=== PATIENT | female | born 1945 | race Caucasian/White ===

== ENCOUNTER 2020-02-25 11:10 | Inpatient (IN) | payer MEDICARE, BC ==
[~2020-02-25] VITALS: Ht 172.7 cm; Wt 106.5 kg
--- NOTE | 2020-02-25 11:31 | NUR ---
Assumed care of patient. Recently admitted to [facility] for sepsis (from RLE cellulitis) January 05-. Patient seen at [facility] today for left knee pain. Joint was aspirated and she was told she needed to come to the ED for surgery for a septic knee. C/O left knee pain and swelling. NAD. Will continue to monitor.
[2020-02-25 12:01] LABS: BASOPHILS # (AUTO) 0.03 x10^3/uL (0-0.1); BASOPHILS % (AUTO) 0 % (0-1); EOSINOPHILS # (AUTO) 0.17 x10^3/uL (0-0.4); EOSINOPHILS % (AUTO) 2 % (1-7); LYMPHOCYTES # (AUTO) 1.11 x10^3/uL (1-3.4); LYMPHOCYTES % (AUTO) 12 % (22-44); MD NO; MEAN CORPUSCULAR HEMOGLOBIN 31.5 pg (27.0-34.8); MEAN CORPUSCULAR HGB CONC 32.4 g/dL (32.4-35.8); MEAN PLATELET VOLUME 8.9 fL (7.4-10.4); MONOCYTES # (AUTO) 1.22 x10^3/uL (0.2-0.8); MONOCYTES % (AUTO) 14 % (2-9); NEUTROPHILS # (AUTO) 6.53 x10^3/uL (1.8-6.8); NEUTROPHILS % (AUTO) 72 % (42-75); PLATELET COUNT 212 x10^3/uL (130-400); RED BLOOD COUNT 4.29 x10^6/uL (3.82-5.3); RED CELL DISTRIBUTION WIDTH 14.6 % (9.6-15.2)
[2020-02-25 12:10] LABS: ALANINE AMINOTRANSFERASE 29 U/L (12-78); ANION GAP 7 mmol/L (5-15); CALCIUM 9.1 mg/dL (8.5-10.1); CHLORIDE 106 mmol/L (98-107)
[2020-02-25 12:12] LABS: ALKALINE PHOSPHATASE 92 U/L (45-117); BILIRUBIN,TOTAL 0.4 mg/dL (0.2-1.0); TOTAL PROTEIN 7.8 g/dL (6.4-8.2)
[2020-02-25] MEDS ORDERED: CEFTRIAXONE PMX 1GM/50ML 50 ML ONE (12:43)
--- NOTE | 2020-02-25 12:55 | NUR ---
PER YOLANDA ELIAS IN [facility] OKAY TO GIVE.
--- NOTE | 2020-02-25 12:56 | NUR ---
MED MUNA FROM PHARMACY.
[2020-02-25] MEDS ORDERED: SODIUM CHLORIDE 0.9% 1,000ML IVBOLUS ONE (13:00)
--- NOTE | 2020-02-25 13:37 | NUR ---
REPORT GIVEN TO [facility]. PT IS READY FOR TRANSPORT AT THIS TIME W/ IVF INUSING APPROPRIATELY.
--- NOTE | 2020-02-25 13:40 | NUR ---
1L NS BOLUS STOPPED AFTER 500ML DUE TO PTS HTN. Addendum: 02/25/20 at 1340 by [email or web address] 1L NS BOLUS STOPPED AFTER 500ML DUE TO PTS HTN. SULY WHITE
[2020-02-25] MEDS ORDERED: POTASSIUM CHLORIDE 40 MEQ in SODIUM CHLORIDE 0.9% 500 ML IV ONE (14:00)
[2020-02-25] MEDS ORDERED: CEFTRIAXONE 1,000 MG in SODIUM CHLORIDE 0.9% 50 ML IVPB ONE (14:00)
[2020-02-25] MEDS ORDERED: methylPREDNISolone *ACETATE* 40 MG/ML ONE (14:29)
[2020-02-25] MEDS ORDERED: BUPIVACAINE/PF 0.5% ONE (14:29)
[2020-02-25] MEDS ORDERED: EPINEPHRINE 1 MG/ML, 1ML ONE (14:29)
[2020-02-25] MEDS ORDERED: methylPREDNISolone*ACETATE* 80 MG/ML ONE (14:29)
[2020-02-25] MEDS ORDERED: ROPIvacaine/PF 0.5%, 30 ML ONE (14:29)
[2020-02-25] MEDS ORDERED: LIDOCAINE/MPF 2%-EPI 1:200K, 20 ML ONE (14:29)
[2020-02-25] MEDS ORDERED: CHLORHEXIDINE 15 ML UDC MM STA (14:31)
[2020-02-25] MEDS ORDERED: FENTANYL PF 250 MCG/5ML ONE (14:40)
[2020-02-25 14:52] VITALS: BP 154/79
[2020-02-25] MEDS ORDERED: OXYcodone 5 MG/5 ML ORAL.SOL UDC PO PRN (15:00)
[2020-02-25] MEDS ORDERED: ACETAMINOPHEN 325 MG TABLET PO PRN (15:00)
[2020-02-25] MEDS ORDERED: ONDANSETRON 2MG/ML, 2ML IVPush PRN ×2 (15:00→17:30)
[2020-02-25] MEDS ORDERED: HYDROmorphone 1 MG/ML, 1ML INJ IVPush PRN (15:00)
[2020-02-25] MEDS ORDERED: PROMETHAZINE 25 MG SUPP PR PRN (15:00)
[2020-02-25] MEDS ORDERED: PROMETHAZINE 25 MG/ML, 1ML IVPush PRN (15:00)
[2020-02-25] MEDS ORDERED: LABETALOL 5MG/ML, 20ML IV PRN (15:00)
[2020-02-25] MEDS ORDERED: hydrALAzine 20 MG/ML, 1ML IV PRN (15:00)
[2020-02-25] MEDS ORDERED: LACTATED RINGERS 1,000 ML IV SCH (15:00)
[2020-02-25] MEDS ORDERED: GLYCOPYRROLATE 0.2MG/1ML, 5ML ONE (15:22)
[2020-02-25] MEDS ORDERED: ONDANSETRON 2MG/ML, 2ML ONE (15:22)
[2020-02-25] MEDS ORDERED: NEOSTIGMINE 1 MG/ML, 10ML ONE (15:22)
[2020-02-25] MEDS ORDERED: DEXAMETHASONE 4 MG/ML, 1ML ONE (15:22)
[2020-02-25] MEDS ORDERED: PROPOFOL 10 MG/ML, 20ML ONE (15:22)
[2020-02-25] MEDS ORDERED: ROCURONIUM 10MG/ML,5ML ONE (15:22)
[2020-02-25] MEDS ORDERED: SUCCINYLCHOLINE 20 MG/ML, 10ML ONE (15:22)
[2020-02-25] MEDS ORDERED: CEFAZOLIN 1,000 MG ONE (15:22)
[2020-02-25] MEDS ORDERED: FENTANYL PF 100 MCG/2ML ONE (15:56)
[2020-02-25] MEDS ORDERED: ACETAMINOPHEN 325 MG TABLET ONE (15:57)
[2020-02-25] MEDS ORDERED: OXYcodone 5 MG/5 ML ORAL.SOL UDC ONE (15:57)
[2020-02-25] MEDS ORDERED: ACETAMINOPHEN 650 MG/20.3 ML UDC ONE (15:58)
[2020-02-25] MEDS: FENTANYL PF 100 MCG/2ML IV PRN ×2 (16:00→16:20)
[2020-02-25] MEDS ORDERED: LABETALOL 5MG/ML, 20ML ONE (16:23)
[2020-02-25] MEDS ORDERED: GABA300C PO (16:35)
[2020-02-25] MEDS ORDERED: ASPI-496 PO (16:35)
[2020-02-25] MEDS ORDERED: MULT-758 PO (16:35)
[2020-02-25] MEDS ORDERED: ASPI-650 PO (16:35)
[2020-02-25] MEDS ORDERED: SULF500T36 PO (16:35)
[2020-02-25] MEDS ORDERED: NORT10CA PO (16:35)
[2020-02-25] MEDS ORDERED: CYAN25009 PO (16:35)
[2020-02-25] MEDS ORDERED: OMEP40CA42 PO (16:35)
[2020-02-25] MEDS ORDERED: FURO40TA6 PO (16:35)
[2020-02-25] MEDS ORDERED: IBUP-1902 PO (16:35)
[2020-02-25] MEDS ORDERED: VITA100C8 PO (16:35)
[2020-02-25] MEDS ORDERED: ADAL40PE7 SQ (16:35)
[2020-02-25] MEDS ORDERED: METO50TA82 PO (16:35)
[2020-02-25] MEDS ORDERED: FOLI-17 PO (16:35)
[2020-02-25] MEDS ORDERED: EZET10TA70 PO (16:35)
[2020-02-25] MEDS ORDERED: CALC1CAP8 PO (16:35)
[2020-02-25] MEDS ORDERED: ATOR-2 PO (16:35)
[2020-02-25] MEDS ORDERED: NITR0.4T41 SL (16:35)
[2020-02-25] MEDS ORDERED: ASCO100018 PO (16:35)
[2020-02-25] MEDS ORDERED: HYDR-3245 PO (16:35)
[2020-02-25] MEDS ORDERED: CHOL10003 PO (16:35)
[2020-02-25] MEDS ORDERED: ADALIMUMAB 40 MG HOMEINJ SCH (17:00)
[2020-02-25] MEDS ORDERED: NITROGLYCERIN SINGLE TAB 0.4 MG SL SCH (17:00)
[2020-02-25] MEDS ORDERED: BISACODYL 10 MG SUPP PR PRN (17:30)
[2020-02-25] MEDS ORDERED: hydrALAzine 20 MG/ML, 1ML IVPush PRN (17:30)
[2020-02-25] MEDS ORDERED: POLYETHYLENE GLYCOL 17 GM PACKET PO PRN (17:30)
[2020-02-25] MEDS: CEFTRIAXONE PMX 1GM/50ML 50 ML IV SCH (18:07)
[2020-02-25] MEDS: SULFASALAZINE 500 MG TABLET PO SCH ×2 (18:07→20:05)
[2020-02-25] MEDS: HEPARIN 5,000 UNITS/ML, 1ML SQ SCH (18:07)
[2020-02-25 18:58] VITALS: BP 114/72
[2020-02-25 18:58] LABS: BASOPHILS # (AUTO) 0.01 x10^3/uL (0-0.1); BASOPHILS % (AUTO) 0 % (0-1); EOSINOPHILS # (AUTO) 0.04 x10^3/uL (0-0.4); EOSINOPHILS % (AUTO) 0 % (1-7); LYMPHOCYTES # (AUTO) 0.55 x10^3/uL (1-3.4); LYMPHOCYTES % (AUTO) 6 % (22-44); MD NO; MEAN CORPUSCULAR HEMOGLOBIN 31.8 pg (27.0-34.8); MEAN CORPUSCULAR HGB CONC 32.7 g/dL (32.4-35.8); MEAN PLATELET VOLUME 9.3 fL (7.4-10.4); MONOCYTES # (AUTO) 0.66 x10^3/uL (0.2-0.8); MONOCYTES % (AUTO) 7 % (2-9); NEUTROPHILS # (AUTO) 7.81 x10^3/uL (1.8-6.8); NEUTROPHILS % (AUTO) 86 % (42-75); PLATELET COUNT 175 x10^3/uL (130-400); RED BLOOD COUNT 4.31 x10^6/uL (3.82-5.3); RED CELL DISTRIBUTION WIDTH 14.5 % (9.6-15.2)
[2020-02-25 19:10] LABS: ANION GAP 3 mmol/L (5-15); CALCIUM 9.1 mg/dL (8.5-10.1); CHLORIDE 107 mmol/L (98-107); CREATININE 0.53 mg/dL (0.55-1.02)
[2020-02-25 19:19] LABS: FREE T4 (FREE THYROXINE) 1.28 ng/dL (0.76-1.46)
[2020-02-25 19:48] LABS: HCT (SEDRATE) 41.7 % (34.6-47.8)
[2020-02-25] MEDS: NORTRIPTYLINE 10 MG CAPSULE PO SCH (20:05)
[2020-02-25] MEDS: ATORVASTATIN 80 MG TABLET PO SCH (20:05)
[2020-02-25] MEDS: GABAPENTIN 300 MG CAPSULE PO SCH (20:05)
[2020-02-25] MEDS: HYDROcodone/APAP 10/325 MG TABLET PO PRN (20:23)
[2020-02-25] MEDS ORDERED: MELATONIN 5 MG TABLET PO PRN (21:00)
[2020-02-26 01:59] VITALS: BP 140/91
[2020-02-26] MEDS: HYDROcodone/APAP 10/325 MG TABLET PO PRN ×4 (02:51→22:05)
[2020-02-26] MEDS: HEPARIN 5,000 UNITS/ML, 1ML SQ SCH ×3 (05:50→20:25)
[2020-02-26] MEDS: SULFASALAZINE 500 MG TABLET PO SCH ×5 (05:50→20:24)
[2020-02-26] MEDS: OMEPRAZOLE 20 MG CAPSULE.DR PO SCH (05:50)
[2020-02-26] MEDS: CEFTRIAXONE PMX 1GM/50ML 50 ML IV SCH ×2 (05:51→17:29)
[2020-02-26 06:40] VITALS: BP 163/96
[2020-02-26] MEDS: METOPROLOL TARTRATE 50 MG TAB PO SCH (08:13)
[2020-02-26] MEDS: GABAPENTIN 300 MG CAPSULE PO SCH ×2 (08:13→20:24)
[2020-02-26] MEDS: ASCORBIC ACID 500 MG TABLET PO SCH (08:13)
[2020-02-26] MEDS: ASPIRIN 81 MG TABLET EC PO SCH (08:13)
[2020-02-26] MEDS: FUROSEMIDE 40 MG TABLET PO SCH (08:13)
[2020-02-26] MEDS: CYANOCOBALAMIN 1,000 MCG TABLET PO SCH (08:13)
[2020-02-26] MEDS: FOLIC ACID 1 MG TABLET PO SCH (08:14)
[2020-02-26] MEDS: CALCIUM/VITAMIN D3 250-125 TABLET PO SCH (08:14)
[2020-02-26] MEDS: MULTIVITAMINS WITH IRON TABLET PO SCH (08:14)
[2020-02-26] MEDS: EZETIMIBE 10 MG TABLET PO SCH (08:14)
[2020-02-26] MEDS: CHOLECALCIFEROL 1,000 UNIT TABLET PO SCH (08:14)
[2020-02-26] MEDS: VITAMIN E 400 UNITS CAPSULE PO SCH (08:22)
[2020-02-26] MEDS ORDERED: VANCOMYCIN 2,500 MG in SODIUM CHLORIDE 0.9% 500 ML IV ONE (08:30)
[2020-02-26] MEDS ORDERED: PHARMACOKINETIC CONSULTATION MC ONE (08:30)
[2020-02-26] MEDS ORDERED: VANCOMYCIN PER PHARMACY MC PRN (08:30)
[2020-02-26] MEDS ORDERED: PHARMACOKINETIC MONITORING MC PRN (08:30)
[2020-02-26] MEDS: ACETAMINOPHEN 325 MG TABLET PO PRN ×2 (14:18→20:24)
[2020-02-26 15:30] VITALS: BP 167/93
[2020-02-26 18:53] VITALS: BP 134/81
[2020-02-26] MEDS: ATORVASTATIN 80 MG TABLET PO SCH (20:24)
[2020-02-26] MEDS: NORTRIPTYLINE 10 MG CAPSULE PO SCH (20:25)
[2020-02-27 01:03] VITALS: BP 183/81
[2020-02-27] MEDS: HYDROcodone/APAP 10/325 MG TABLET PO PRN ×5 (04:12→21:49)
[2020-02-27 05:29] LABS: ANION GAP 6 mmol/L (5-15); BASOPHILS # (AUTO) 0.02 x10^3/uL (0-0.1); BASOPHILS % (AUTO) 0 % (0-1); CALCIUM 9.1 mg/dL (8.5-10.1); CHLORIDE 105 mmol/L (98-107); EOSINOPHILS # (AUTO) 0.07 x10^3/uL (0-0.4); EOSINOPHILS % (AUTO) 1 % (1-7); LYMPHOCYTES # (AUTO) 1.19 x10^3/uL (1-3.4); LYMPHOCYTES % (AUTO) 17 % (22-44); MD NO; MEAN CORPUSCULAR HEMOGLOBIN 31.4 pg (27.0-34.8); MEAN CORPUSCULAR HGB CONC 32.2 g/dL (32.4-35.8); MEAN PLATELET VOLUME 9.1 fL (7.4-10.4); MONOCYTES # (AUTO) 1.06 x10^3/uL (0.2-0.8); MONOCYTES % (AUTO) 15 % (2-9); NEUTROPHILS # (AUTO) 4.61 x10^3/uL (1.8-6.8); NEUTROPHILS % (AUTO) 66 % (42-75); PLATELET COUNT 186 x10^3/uL (130-400); RED BLOOD COUNT 4.12 x10^6/uL (3.82-5.3); RED CELL DISTRIBUTION WIDTH 14.5 % (9.6-15.2)
[2020-02-27 05:30] LABS: CREATININE 0.47 mg/dL (0.55-1.02)
[2020-02-27] MEDS: CEFTRIAXONE PMX 1GM/50ML 50 ML IV SCH (06:18)
[2020-02-27] MEDS: SULFASALAZINE 500 MG TABLET PO SCH ×5 (06:18→22:03)
[2020-02-27] MEDS: HEPARIN 5,000 UNITS/ML, 1ML SQ SCH ×3 (06:19→21:48)
[2020-02-27] MEDS: OMEPRAZOLE 20 MG CAPSULE.DR PO SCH (06:19)
[2020-02-27 07:26] VITALS: BP 174/104
[2020-02-27] MEDS: CHOLECALCIFEROL 1,000 UNIT TABLET PO SCH (07:32)
[2020-02-27] MEDS: FOLIC ACID 1 MG TABLET PO SCH (07:32)
[2020-02-27] MEDS: GABAPENTIN 300 MG CAPSULE PO SCH ×2 (07:32→22:03)
[2020-02-27] MEDS: VITAMIN E 400 UNITS CAPSULE PO SCH (07:32)
[2020-02-27] MEDS: MULTIVITAMINS WITH IRON TABLET PO SCH (07:32)
[2020-02-27] MEDS: ASCORBIC ACID 500 MG TABLET PO SCH (07:32)
[2020-02-27] MEDS: EZETIMIBE 10 MG TABLET PO SCH (07:32)
[2020-02-27] MEDS: CYANOCOBALAMIN 1,000 MCG TABLET PO SCH (07:33)
[2020-02-27] MEDS: ASPIRIN 81 MG TABLET EC PO SCH (07:33)
[2020-02-27] MEDS: FUROSEMIDE 40 MG TABLET PO SCH (07:33)
[2020-02-27] MEDS: METOPROLOL TARTRATE 50 MG TAB PO SCH (07:36)
[2020-02-27] MEDS: CALCIUM/VITAMIN D3 250-125 TABLET PO SCH (07:45)
[2020-02-27] MEDS: ACETAMINOPHEN 325 MG TABLET PO PRN (07:45)
[2020-02-27] MEDS: VANCOMYCIN 2,100 MG in SODIUM CHLORIDE 0.9% 500 ML IV SCH (09:27)
[2020-02-27] MEDS: POTASSIUM CHLORIDE 20 MEQ TAB.ER.PRT PO SCH ×3 (09:28→21:49)
[2020-02-27 12:38] VITALS: BP 170/89
[2020-02-27 13:51] VITALS: BP 140/84
[2020-02-27] MEDS: INSULIN LISPRO 100 UNITS/ML, PEN SQ-INSULIN SCH ×2 (16:00→21:00)
[2020-02-27 18:57] VITALS: BP 159/86
[2020-02-27] MEDS: ATORVASTATIN 80 MG TABLET PO SCH (21:48)
[2020-02-27] MEDS: NORTRIPTYLINE 10 MG CAPSULE PO SCH (21:49)
[2020-02-28 01:14] VITALS: BP 150/78
[2020-02-28] MEDS: HYDROcodone/APAP 10/325 MG TABLET PO PRN ×4 (04:01→18:05)
[2020-02-28 05:43] LABS: ANION GAP 6 mmol/L (5-15); CALCIUM 9.5 mg/dL (8.5-10.1); CHLORIDE 105 mmol/L (98-107)
[2020-02-28 05:44] LABS: CREATININE 0.42 mg/dL (0.55-1.02)
[2020-02-28] MEDS: SULFASALAZINE 500 MG TABLET PO SCH ×5 (06:01→20:24)
[2020-02-28] MEDS: OMEPRAZOLE 20 MG CAPSULE.DR PO SCH (06:02)
[2020-02-28] MEDS: HEPARIN 5,000 UNITS/ML, 1ML SQ SCH ×3 (06:02→21:30)
[2020-02-28] MEDS: INSULIN LISPRO 100 UNITS/ML, PEN SQ-INSULIN SCH ×4 (07:00→20:25)
[2020-02-28 07:12] VITALS: BP 143/88
[2020-02-28] MEDS: ASCORBIC ACID 500 MG TABLET PO SCH (08:15)
[2020-02-28] MEDS: MULTIVITAMINS WITH IRON TABLET PO SCH (08:15)
[2020-02-28] MEDS: CHOLECALCIFEROL 1,000 UNIT TABLET PO SCH (08:15)
[2020-02-28] MEDS: POTASSIUM CHLORIDE 20 MEQ TAB.ER.PRT PO SCH ×3 (08:15→20:24)
[2020-02-28] MEDS: ASPIRIN 81 MG TABLET EC PO SCH (08:16)
[2020-02-28] MEDS: CALCIUM/VITAMIN D3 250-125 TABLET PO SCH (08:16)
[2020-02-28] MEDS: VITAMIN E 400 UNITS CAPSULE PO SCH (08:16)
[2020-02-28] MEDS: EZETIMIBE 10 MG TABLET PO SCH (08:16)
[2020-02-28] MEDS: GABAPENTIN 300 MG CAPSULE PO SCH ×2 (08:17→20:24)
[2020-02-28] MEDS: FOLIC ACID 1 MG TABLET PO SCH (08:17)
[2020-02-28] MEDS: FUROSEMIDE 40 MG TABLET PO SCH (08:17)
[2020-02-28] MEDS: CYANOCOBALAMIN 1,000 MCG TABLET PO SCH (08:17)
[2020-02-28] MEDS: METOPROLOL TARTRATE 50 MG TAB PO SCH (09:57)
[2020-02-28] MEDS: VANCOMYCIN 2,100 MG in SODIUM CHLORIDE 0.9% 500 ML IV SCH (09:58)
[2020-02-28] MEDS: CEFAZOLIN PMX 2GM/50ML 50 ML IVPB SCH ×2 (11:22→18:04)
[2020-02-28 14:05] VITALS: BP 128/82
[2020-02-28] MEDS: DOCUSATE 100 MG CAPSULE PO PRN (18:12)
[2020-02-28 19:42] VITALS: BP 151/93
[2020-02-28] MEDS: NORTRIPTYLINE 10 MG CAPSULE PO SCH (20:24)
[2020-02-28] MEDS: ATORVASTATIN 80 MG TABLET PO SCH (20:24)
[2020-02-29 00:27] VITALS: BP 153/92
[2020-02-29] MEDS: HYDROcodone/APAP 10/325 MG TABLET PO PRN ×6 (00:29→22:37)
[2020-02-29] MEDS: CEFAZOLIN PMX 2GM/50ML 50 ML IVPB SCH ×3 (03:05→18:23)
[2020-02-29] MEDS: OMEPRAZOLE 20 MG CAPSULE.DR PO SCH (06:11)
[2020-02-29] MEDS: SULFASALAZINE 500 MG TABLET PO SCH ×5 (06:11→21:38)
[2020-02-29] MEDS: HEPARIN 5,000 UNITS/ML, 1ML SQ SCH ×3 (06:16→21:39)
[2020-02-29] MEDS: INSULIN LISPRO 100 UNITS/ML, PEN SQ-INSULIN SCH ×4 (07:00→21:38)
[2020-02-29 08:33] VITALS: BP 138/82
[2020-02-29] MEDS: ASPIRIN 81 MG TABLET EC PO SCH (09:32)
[2020-02-29] MEDS: FUROSEMIDE 40 MG TABLET PO SCH (09:33)
[2020-02-29] MEDS: CALCIUM/VITAMIN D3 250-125 TABLET PO SCH (09:33)
[2020-02-29] MEDS: CHOLECALCIFEROL 1,000 UNIT TABLET PO SCH (09:33)
[2020-02-29] MEDS: MULTIVITAMINS WITH IRON TABLET PO SCH (09:34)
[2020-02-29] MEDS: METOPROLOL TARTRATE 50 MG TAB PO SCH (09:34)
[2020-02-29] MEDS: ASCORBIC ACID 500 MG TABLET PO SCH (09:34)
[2020-02-29] MEDS: EZETIMIBE 10 MG TABLET PO SCH (09:34)
[2020-02-29] MEDS: GABAPENTIN 300 MG CAPSULE PO SCH ×2 (09:34→21:38)
[2020-02-29] MEDS: VITAMIN E 400 UNITS CAPSULE PO SCH (09:34)
[2020-02-29] MEDS: FOLIC ACID 1 MG TABLET PO SCH (09:34)
[2020-02-29] MEDS: CYANOCOBALAMIN 1,000 MCG TABLET PO SCH (09:34)
[2020-02-29] MEDS: POTASSIUM CHLORIDE 20 MEQ TAB.ER.PRT PO SCH ×3 (09:35→21:39)
[2020-02-29 14:58] VITALS: BP 121/70
[2020-02-29] MEDS: POLYETHYLENE GLYCOL 17 GM PACKET PO SCH ×2 (15:33→21:37)
[2020-02-29] MEDS: DOCUSATE 100 MG CAPSULE PO PRN (15:33)
[2020-02-29 19:58] VITALS: BP 135/75
[2020-02-29] MEDS: ATORVASTATIN 80 MG TABLET PO SCH (21:38)
[2020-02-29] MEDS: NORTRIPTYLINE 10 MG CAPSULE PO SCH (21:38)
[2020-03-01 01:29] VITALS: BP 135/84
[2020-03-01] MEDS: CEFAZOLIN PMX 2GM/50ML 50 ML IVPB SCH ×3 (02:37→18:21)
[2020-03-01] MEDS: HYDROcodone/APAP 10/325 MG TABLET PO PRN ×2 (04:47→09:12)
[2020-03-01] MEDS: OMEPRAZOLE 20 MG CAPSULE.DR PO SCH (05:55)
[2020-03-01] MEDS: SULFASALAZINE 500 MG TABLET PO SCH ×5 (05:55→21:31)
[2020-03-01] MEDS: HEPARIN 5,000 UNITS/ML, 1ML SQ SCH ×3 (05:55→21:33)
[2020-03-01 06:44] VITALS: BP 171/93
[2020-03-01] MEDS: INSULIN LISPRO 100 UNITS/ML, PEN SQ-INSULIN SCH ×4 (07:00→21:32)
[2020-03-01] MEDS: CYANOCOBALAMIN 1,000 MCG TABLET PO SCH (09:10)
[2020-03-01] MEDS: GABAPENTIN 300 MG CAPSULE PO SCH ×2 (09:10→21:31)
[2020-03-01] MEDS: ASPIRIN 81 MG TABLET EC PO SCH (09:10)
[2020-03-01] MEDS: FOLIC ACID 1 MG TABLET PO SCH (09:10)
[2020-03-01] MEDS: METOPROLOL TARTRATE 50 MG TAB PO SCH (09:10)
[2020-03-01] MEDS: EZETIMIBE 10 MG TABLET PO SCH (09:11)
[2020-03-01] MEDS: CHOLECALCIFEROL 1,000 UNIT TABLET PO SCH (09:11)
[2020-03-01] MEDS: MULTIVITAMINS WITH IRON TABLET PO SCH (09:11)
[2020-03-01] MEDS: POTASSIUM CHLORIDE 20 MEQ TAB.ER.PRT PO SCH ×3 (09:12→21:32)
[2020-03-01] MEDS: FUROSEMIDE 40 MG TABLET PO SCH (09:12)
[2020-03-01] MEDS: ASCORBIC ACID 500 MG TABLET PO SCH (09:12)
[2020-03-01] MEDS: CALCIUM/VITAMIN D3 250-125 TABLET PO SCH (09:12)
[2020-03-01] MEDS: POLYETHYLENE GLYCOL 17 GM PACKET PO SCH ×3 (09:13→21:32)
[2020-03-01] MEDS: VITAMIN E 400 UNITS CAPSULE PO SCH (09:13)
[2020-03-01 13:21] VITALS: BP 122/81
[2020-03-01] MEDS: OXYcodone IR 5MG TABLET PO PRN ×2 (14:28→18:21)
[2020-03-01 20:40] VITALS: BP 143/81
[2020-03-01] MEDS: ATORVASTATIN 80 MG TABLET PO SCH (21:32)
[2020-03-01] MEDS: NORTRIPTYLINE 10 MG CAPSULE PO SCH (21:32)
[2020-03-02 01:12] VITALS: BP 153/83
[2020-03-02] MEDS: OXYcodone IR 5MG TABLET PO PRN ×4 (01:29→15:06)
[2020-03-02] MEDS: CEFAZOLIN PMX 2GM/50ML 50 ML IVPB SCH ×2 (02:32→10:40)
[2020-03-02] MEDS: SULFASALAZINE 500 MG TABLET PO SCH ×3 (05:31→15:00)
[2020-03-02] MEDS: HEPARIN 5,000 UNITS/ML, 1ML SQ SCH ×2 (05:31→15:00)
[2020-03-02] MEDS: OMEPRAZOLE 20 MG CAPSULE.DR PO SCH (05:32)
[2020-03-02] MEDS: INSULIN LISPRO 100 UNITS/ML, PEN SQ-INSULIN SCH ×2 (07:00→11:00)
[2020-03-02 07:38] VITALS: BP 155/75
[2020-03-02] MEDS: GABAPENTIN 300 MG CAPSULE PO SCH (07:58)
[2020-03-02] MEDS: MULTIVITAMINS WITH IRON TABLET PO SCH (07:58)
[2020-03-02] MEDS: VITAMIN E 400 UNITS CAPSULE PO SCH (07:58)
[2020-03-02] MEDS: POTASSIUM CHLORIDE 20 MEQ TAB.ER.PRT PO SCH ×2 (07:58→15:06)
[2020-03-02] MEDS: FOLIC ACID 1 MG TABLET PO SCH (07:59)
[2020-03-02] MEDS: ASPIRIN 81 MG TABLET EC PO SCH (07:59)
[2020-03-02] MEDS: CYANOCOBALAMIN 1,000 MCG TABLET PO SCH (07:59)
[2020-03-02] MEDS: CHOLECALCIFEROL 1,000 UNIT TABLET PO SCH (07:59)
[2020-03-02] MEDS: FUROSEMIDE 40 MG TABLET PO SCH (07:59)
[2020-03-02] MEDS: CALCIUM/VITAMIN D3 250-125 TABLET PO SCH (08:00)
[2020-03-02] MEDS: ASCORBIC ACID 500 MG TABLET PO SCH (08:00)
[2020-03-02] MEDS: POLYETHYLENE GLYCOL 17 GM PACKET PO SCH (08:00)
[2020-03-02] MEDS: METOPROLOL TARTRATE 50 MG TAB PO SCH (08:00)
[2020-03-02] MEDS: EZETIMIBE 10 MG TABLET PO SCH (08:05)
[2020-03-02] MEDS ORDERED: HEPA50002 SQ (12:26)
[2020-03-02] MEDS ORDERED: MELA5TAB14 PO (12:26)
[2020-03-02] MEDS ORDERED: OXYC5TAB3 PO (12:26)
[2020-03-02] MEDS ORDERED: POLY17PO5 PO (12:26)
[2020-03-02] MEDS ORDERED: POTA20TA6 PO (12:26)
[2020-03-02] MEDS ORDERED: CEFA2PLA9 IV (12:26)
[2020-03-02] MEDS ORDERED: ACET325T26 PO (12:26)
[2020-03-02 12:54] VITALS: BP 139/84
== END 2020-03-02 16:31 | DRG 872 ==
LOC: ED 12:14 → EDIP 12:35 → SUATTDRO 12:44 → 3N 14:08
PROVIDERS: ADMIT Hospitalist; ATTEND Internal Medicine
PROC: 0S9D4ZZ Drainage of Left Knee Joint, Percutaneous Endoscopic Approach (ICD-10-PCS; 2020-02-25)
PROC: B548ZZA Ultrasonography of Superior Vena Cava, Guidance (ICD-10-PCS; principal; 2020-03-01)
PROC: 02HV33Z Insertion of Infusion Device into Superior Vena Cava, Percutaneous Approach (ICD-10-PCS; 2020-03-01)
PROC: B5181ZA Fluoroscopy of Superior Vena Cava using Low Osmolar Contrast, Guidance (ICD-10-PCS; 2020-03-01)
DX: A41.01 Sepsis due to Methicillin susceptible Staphylococcus aureus (principal); M00.072 Staphylococcal arthritis, left ankle and foot; R65.20 Severe sepsis without septic shock; E87.6 Hypokalemia; I25.10 Atherosclerotic heart disease of native coronary artery without angina pectoris; E11.65 Type 2 diabetes mellitus with hyperglycemia; E66.9 Obesity, unspecified; E78.00 Pure hypercholesterolemia, unspecified; E78.5 Hyperlipidemia, unspecified; G47.33 Obstructive sleep apnea (adult) (pediatric); I10 Essential (primary) hypertension; I35.8 Other nonrheumatic aortic valve disorders; I87.2 Venous insufficiency (chronic) (peripheral); K21.9 Gastro-esophageal reflux disease without esophagitis; K59.03 Drug induced constipation; M06.9 Rheumatoid arthritis, unspecified; M13.10 Monoarthritis, not elsewhere classified, unspecified site; T40.605A Adverse effect of unspecified narcotics, initial encounter; G47.30 Sleep apnea, unspecified; R26.2 Difficulty in walking, not elsewhere classified; Z20.828 Contact with and (suspected) exposure to other viral communicable diseases; Z79.899 Other long term (current) drug therapy; Z95.5 Presence of coronary angioplasty implant and graft; Z82.49 Family history of ischemic heart disease and other diseases of the circulatory system; Z68.37 Body mass index [BMI] 37.0-37.9, adult; Y92.89 Other specified places as the place of occurrence of the external cause; Z79.82 Long term (current) use of aspirin; Z68.35 Body mass index [BMI] 35.0-35.9, adult; B95.61 Methicillin susceptible Staphylococcus aureus infection as the cause of diseases classified elsewhere
CPT/HCPCS: 36415; 36573; 71045; 80048; 80053; 82962; 83036; 83605; 83735; 84439; 84443; 85025; 85651; 85810; 87040; 87070; 87075; 87077; 87147; 87186; 87205; 87635; 89050; 89060; 93005; 93306; 96365; 96375; G0378; J0171; J0690; J0696; J1100; J1644; J2405; J2704; J2710; J2795; J3010; J3370; J3480; J3490; C1751; J0330; J0360; J1030; J1040; J1815; J7030; J7040; J7120